=== PATIENT | male | born 1965 | race Caucasian/White ===

== ENCOUNTER 2018-07-29 05:56 | Inpatient (IN) | payer OTHER ==
[2018-07-18 08:58] LABS: ABSOLUTE EOSINOPHILS 0.1 thou/uL (0.0-0.7); ABSOLUTE LYMPHOCYTES 1.1 thou/uL (0.8-5.3); ABSOLUTE MONOCYTES 0.3 thou/uL (0.0-1.2); ABSOLUTE NEUTROPHILS 2.1 thou/uL (1.6-8.1); EOSINOPHILS 3.2 %; HEMOGLOBIN 14.3 gm/dL (14.0-18.0); LYMPHOCYTES 29.6 %; MCH 30.3 pg (26.0-34.0); MCHC 34.1 g/dL (28.0-37.0); MCV 88.9 fL (80.0-100.0); MONOCYTES 8.3 %; MPV 7.3 fl. (7.2-11.1); NUCLEATED RBCS 0 /100WBC; PLATELET COUNT* 131 thou/uL (150-400); POLYS 57.9 %; RBC 4.73 mil/uL (4.50-6.00); RDW-CV 13.4 % (10.5-14.5); WBC 3.7 thou/uL (4.0-11.0)
[2018-07-18 09:06] LABS: APTT 27.3 Seconds (25.0-31.3); PROTIME 10.7 Seconds (9.20-11.50)
[2018-07-18 09:42] LABS: ALBUMIN 3.9 g/dL (3.4-5.0); CALCIUM 9.3 mg/dL (8.5-10.1); CREATININE 0.8 mg/dL (0.6-1.3); POTASSIUM 4.5 mmol/L (3.5-5.1); TOTAL BILIRUBIN 0.6 mg/dL (<0.1-1.0); TOTAL PROTEIN 6.9 g/dL (6.4-8.2)
[2018-07-18 10:56] LABS: ESR (SEDRATE) 5 mm/hr (0-20)
--- NOTE | 2018-07-18 11:22 | EKG ---
[place] [address] ELECTROCARDIOGRAM REPORT Name: KAILEY KUMAR Room: [facility].#: [id number] Admission: Attend Phys: [facility] Discharge: Date of : 65 Report #: [id number] THIS REPORT FOR: //name// [facility] Test Date: 2018-07-18 Test Time: 09:03:13 Pat Name: KAILEY KUMAR Department: Room: Gender: Safety Administrator: : 1965 Requested By: Alberto Gardner Order Number: [id number] Reading MD: Natalio Angulo Measurements Intervals [place] Rate: 50 P: 48 IN: 175 QRS: 37 QRSD: 121 T: 11 QT: 457 QTc: 417 Interpretive Statements Sinus rhythm Nonspecific intraventricular conduction delay No previous ECG available for comparison Electronically Signed On 07-18-2018 11:22:45 [employer] by Natalio Angulo [email or web address] <ELECTRONICALLY SIGNED> By: Natalio Angulo MD, [facility] 07/18/18 1122 [id number] Natalio Angulo MD, FACC /EPI
[~2018-07-29] VITALS: Ht 188 cm; Wt 105.7 kg
[~2018-07-29 05:56] MED LIST: ASPIRIN325 PO; CIALIS20 MG PO; COLACE100 MG PO; FISH OIL 1,001000 M2 PO; L-ARGININE500 M1 PO; MOBIC7.5 MG PO; OXYCODONE HCL 55 MG PO; SYNTHROID125 MC1 PO
[2018-07-29 06:27] VITALS: BP 150/90
[2018-07-29 11:00] VITALS: BP 118/66
[2018-07-29 16:00] VITALS: BP 134/75
--- NOTE | 2018-07-29 18:53 | OP ---
[address] [address] OPERATIVE REPORT Name: KAILEY KUMAR Room: [address] IN M.R.#: [id number] Admission: 07/29/18 Attend Phys: [facility] Discharge: Date of : 65 Report #: [id number] THIS REPORT FOR: //name// CC: Alberto Friend DICTATED BY: Javier Cheatham DO DATE OF SERVICE: 07/29/2018 DIAGNOSIS: Right knee degenerative joint disease. PROCEDURE PERFORMED: Right total knee arthroplasty. SURGEON: Alberto Gardner DO. CLEARING HAND: Javier Cheatham DO. SECOND CLEARING HAND: Mars Wilhelm DO. ANESTHESIA: Spinal and MAC with local. ESTIMATED BLOOD LOSS: 75 mL. COMPLICATIONS: None. SPECIMENS: None. DRAINS: None. CONDITION: The patient is stable to PACU. ORTHOPEDIC IMPLANTS: 1. Biomet Vanguard CR femur, 72.5 mm. 2. Biomet 79 mm fixed cruciate tibial plate. 3. Biomet Vanguard 10 mm tibial bearing, E1. 4. Biomet asymmetric patella, 34 mm. 5. Two bags of Palacos bone cement. INDICATION FOR PROCEDURE: The patient is a pleasant 53-year-old male who is a very active individual. He has had severe osteoarthrosis of his right knee with tricompartmental changes on radiography. Range of motion was 10-100 degrees preoperatively. He had failed conservative measures, had decreased quality of life due to his condition, has recommended be a candidate for total knee arthroplasty. All risks, benefits, complications, indications [place] [address] OPERATIVE REPORT Name: KAILEY KUMAR Room: [address] IN .R.#: [id number] Admission: 07/29/18 Attend Phys: [facility] Discharge: Date of : 65 Report #: [id number] were reviewed with the patient, he wished to proceed. DESCRIPTION OF PROCEDURE: The patient brought to the operative suite, placed on a well-padded table, given a spinal block and then placed under monitored anesthesia care. The right lower extremity was then sterilely prepped and draped in standard fashion. Timeout was taken to ensure correct patient, procedure, operative site and antibiotics were given, everybody in the room was in agreeance. At that time, a 10-blade scalpel was used to make incision over the anterior aspect of right knee. Subcutaneous tissue was dissected. A second 10-blade was used to perform medial parapatellar arthrotomy. Anterior horns of medial and lateral menisci were excised as well as Hoffa's fat pad. Knee was then brought into deeper flexion. A drill was used to find the intramedullary canal of the femur. We given his lack took initially 12 and then took an extra mm for a total of 13 mm off the distal femur set at 5 degrees valgus, right. Once this resection was made, we took 10 mm off the high lateral side of the tibia. With this, we had adequate spacing with our 10 block. We then measured to a 72.5 and using 4-in-1 cutting block, made the anterior and posterior cuts followed by anterior, posterior chamfers, osteophytes removed with a rongeur. The ACL remnant, PCL remnant and the medial and lateral menisci were excised with Bovie electrocautery and [facility]. Once this portion of the case was complete, osteophytes were removed from the medial side of the tibia. We had equal flexion and extension gaps with our 10 block spacer with the equal varus and valgus balance. We then sized our tibia to a 79, placed our 72.5 mm femur and a trial with 10. With a 10 spacer, we had excellent range of motion, excellent stability through mid flexion with equal varus and valgus balance. We then Bovie electrocauterized the periphery of the patella and resurfaced the patella with a Benson 46 mm reamer. Once this was taken to the appropriate depth, we drilled 3 peg holes and measured to a 34 mm asymmetric patella. We had excellent patellar tracking with the trial button. At this point, drill holes were drilled in the end of the femur. Proximal tibia was drilled with a drill and punch and pulsatile lavage was used to treat the bone ends in preparation for cementing. Cement was mixed at the back table simultaneously. We then carried out cementing first with the tibia followed by the femur and patella. We trialed a 12; however, this was too tight. We ended up after removing all excess cement, placed the final 10 mm tibial bearing, crossbar was locked into place. Patellar clamp was applied to the patella. Once excess cement was removed, the knee was irrigated once more with pulsatile lavage. One gram of vancomycin powder was applied. Knee was brought to 90 degrees of flexion and held there while cement hardened. We then closed the capsule with #1 Vicryl followed by running #1 Stratafix, subcutaneous tissue closed with 2-0 Monocryl followed by running 3-0 Stratafix and Dermabond glue. [place] [address] OPERATIVE REPORT Name: KAILEY KUMAR Room: [address] [place] .R.#: [id number] Admission: 07/29/18 Attend Phys: [facility] Discharge: Date of : 65 Report #: [id number] applied followed by AMIRA ford. The patient was awoken from anesthesia and brought to PACU in stable condition. <ELECTRONICALLY SIGNED> By: Alberto Gardner DO 07/29/18 [id number] [id number] Gardner DO /nt
[2018-07-29 20:00] VITALS: BP 115/70
[2018-07-30] VITALS: BP 107/65
[2018-07-30 03:41] VITALS: BP 113/76
[2018-07-30 05:55] LABS: HEMATOCRIT 36.1 % (42.0-52.0); HEMOGLOBIN 12.4 gm/dL (14.0-18.0)
[2018-07-30 08:15] VITALS: BP 131/81
[2018-07-30 12:34] VITALS: BP 113/76
[2018-07-30] MEDS ORDERED: ELIQUIS2.5 MG PO (12:39)
[2018-07-30] MEDS ORDERED: OXYCODONE HCL 55 MG PO (12:41)
[2018-07-30] MEDS ORDERED: ASPIRIN325 PO (12:51)
[2018-07-30 21:40] VITALS: BP 113/76
== END 2018-07-30 15:30 | disposition home or self-care (01) | DRG 470 ==
LOC: M.SUR 05:56 → M.ORTHSURG 11:00 → M.SUR 13:44 → M.ORTHSURG 07-30 15:30
PROVIDERS: Orthopaedic Surgery; ADMIT Internal Medicine
PROC: 0SRC0J9 Replacement of Right Knee Joint with Synthetic Substitute, Cemented, Open Approach (ICD-10-PCS; principal; 2018-07-29)
DX: M17.11 Unilateral primary osteoarthritis, right knee (principal); D62 Acute posthemorrhagic anemia; E03.9 Hypothyroidism, unspecified; Z96.642 Presence of left artificial hip joint; Z79.899 Other long term (current) drug therapy